=== PATIENT | male | born 1960 | race Caucasian/White ===

== ENCOUNTER → 2018-12-29 | Outpatient (CLI) | payer BC ==
[~2018-12-29] MED LIST: DILT240C71 OR; MONT10TA34 PO; TRIA75TA55 PO
[2018-12-29 08:22] LABS: Basophils # (auto) 0 uL; Eosinophils # (auto) 0.1 uL; Eosinophils % (auto) 1.1 % (0.0-7.0); Lymphocytes # (auto) 1.3 uL; Mean Corpuscular Volume 99.9 fL (80.0-100.0); Monocytes # (auto) 0.4 uL; Nucleated Red Blood Cells % 0.1 %
[2018-12-29 08:26] LABS: Basophils % (auto) 0.7 % (0.0-2.0); Hematocrit 48.4 % (41.0-53.0); Mean Corpuscular Hemoglobin 35.1 pg (28.0-32.0); Mean Corpuscular Hgb Conc. 35.1 g/dL (32.0-36.0); Monocytes % (auto) 6.1 % (0.0-12.0); Neutrophils # (auto) 4.5 uL; Neutrophils % (auto) 71.1 % (37.0-80.0); Platelet Count (auto) 197 10^3/uL (140-450); Red Blood Cells 4.84 10^6/uL (4.5-5.90); Red Cell Distribution Width 13.1 % (11.8-14.3); White Blood Cell 6.3 10^3/uL (4.4-10.8)
[2018-12-29 09:06] LABS: Potassium 4.6 mmol/L (3.5-5.1)
[2018-12-29 09:12] LABS: Urine Bacteria NONE SEEN /hpf (None Seen); Urine Blood TRACE /uL (Negative); Urine Mucus FEW (None Seen); Urine Specific Gravity 1.021 (1.001-1.035); Urine WBC <1 /hpf (0 - 3)
[2018-12-29 09:16] LABS: Albumin 3.8 g/dL (3.4-5.0); BUN/Creatinine Ratio 19.4; Bilirubin, Total 0.5 mg/dL (0.2-1.0); Calcium 8.7 mg/dL (8.5-10.1); Total Protein 7.4 g/dL (6.4-8.2)
[2018-12-29 11:22] LABS: Free T4 (Free Thyroxine) 0.67 ng/dL (0.89-1.76); Prostate Specific Antigen 1.04 ng/mL (0.0-4.0)
== END | disposition home or self-care (01) ==
LOC: LAB 07:42
PROVIDERS: ATTEND Internal Medicine
DX: C18.9 Malignant neoplasm of colon, unspecified (principal); I10 Essential (primary) hypertension
CPT/HCPCS: 36415; 80053; 80061; 81001; 82043; 82378; 83615; 84153; 84439; 84443; 85025; 85652

== ENCOUNTER → 2019-02-23 | Day surgery (SDC) | payer BC ==
[2019-02-19 08:48] LABS: Basophils # (auto) 0 uL; Hemoglobin 16.9 g/dL (13.5-17.5); Lymphocytes # (auto) 1.2 uL; Monocytes # (auto) 0.4 uL; Neutrophils # (auto) 4.8 uL; White Blood Cell 6.5 10^3/uL (4.4-10.8)
[2019-02-19 08:50] LABS: Basophils % (auto) 0.4 % (0.0-2.0); Eosinophils # (auto) 0.1 uL; Eosinophils % (auto) 0.9 % (0.0-7.0); Hematocrit 48.2 % (41.0-53.0); Lymphocytes % (auto) 18.5 % (10.0-50.0); Mean Corpuscular Hgb Conc. 35.1 g/dL (32.0-36.0); Mean Corpuscular Volume 99.8 fL (80.0-100.0); Neutrophils % (auto) 74.2 % (37.0-80.0); Nucleated Red Blood Cells % 0.2 %; Platelet Count (auto) 185 10^3/uL (140-450); Red Blood Cells 4.83 10^6/uL (4.5-5.90)
[2019-02-19 09:04] LABS: INR 0.99 (0.9-1.15); Partial Thromboplastin Time 26.5 sec (23.64-32.05)
[~2019-02-23] MED LIST changes: -DILT240C71 OR; +METO-169 PO; -MONT10TA34 PO; +SODIUM CHLORIDE LOCK 10 ML ONE; -TRIA75TA55 PO; +VALS1TAB57 PO; +diphenhdrAMINE HCL 50 MG/1 ML VL ONE
[2019-02-23] MEDS: MIDAZOLAM HCL 5 MG/ML-1ML VIAL ONE ×2 (11:17→11:20)
[2019-02-23] MEDS: fentaNYL CITRATE 100 MCG/2 ML VL ONE ×2 (11:17→11:20)
[2019-02-23 11:56] VITALS: BP 136/83
== END | disposition home or self-care (01) ==
LOC: GI 09:07
PROVIDERS: ATTEND Internal Medicine Gastroenterology
DX: Z12.11 Encounter for screening for malignant neoplasm of colon (principal); D12.3 Benign neoplasm of transverse colon; K57.30 Diverticulosis of large intestine without perforation or abscess without bleeding; K64.8 Other hemorrhoids; F17.210 Nicotine dependence, cigarettes, uncomplicated; Z88.8 Allergy status to other drugs, medicaments and biological substances; Z79.899 Other long term (current) drug therapy; Z86.718 Personal history of other venous thrombosis and embolism
CPT/HCPCS: 36415; 45380; 85025; 85610; 85730; 88305; J1200; J2250; J3010; J7030; 99152

== ENCOUNTER → 2020-02-26 | Outpatient (CLI) | payer BC ==
[~2020-02-26] MED LIST changes: -SODIUM CHLORIDE LOCK 10 ML ONE; -diphenhdrAMINE HCL 50 MG/1 ML VL ONE
[2020-02-26 09:49] LABS: Basophils # (auto) 0 10 ^3/uL (0-0.2); Basophils % (auto) 0.3 % (0.0-2.0); Eosinophils # (auto) 0 10 ^3/uL (0-0.8); Eosinophils % (auto) 0.5 % (0.0-7.0); Lymphocytes # (auto) 1.5 10 ^3/uL (0.4-5.4); Monocytes # (auto) 0.4 10 ^3/uL (0-1.3); Red Cell Distribution Width 13.2 % (11.8-14.3)
[2020-02-26 09:52] LABS: Hematocrit 47.1 % (41.0-53.0); Hemoglobin 16.4 g/dL (13.5-17.5); Lymphocytes % (auto) 19.8 % (10.0-50.0); Mean Corpuscular Hemoglobin 34.3 pg (28.0-32.0); Mean Corpuscular Hgb Conc. 34.8 g/dL (32.0-36.0); Mean Corpuscular Volume 98.5 fL (80.0-100.0); Monocytes % (auto) 5.5 % (0.0-12.0); Neutrophils # (auto) 5.7 10 ^3/uL (1.6-8.6); Neutrophils % (auto) 73.9 % (37.0-80.0); Nucleated Red Blood Cells % 0.1 %; Platelet Count (auto) 232 10^3/uL (140-450); Red Blood Cells 4.78 10^6/uL (4.5-5.90); White Blood Cell 7.8 10^3/uL (4.4-10.8)
[2020-02-26 09:57] LABS: Albumin 3.8 g/dL (3.4-5.0); Potassium 4.2 mmol/L (3.5-5.1)
[2020-02-26 10:04] LABS: BUN/Creatinine Ratio 13.5; Bilirubin, Total 0.6 mg/dL (0.2-1.0); Calcium 9.1 mg/dL (8.5-10.1); Total Protein 7.6 g/dL (6.4-8.2)
[2020-02-26 10:16] LABS: Free T4 (Free Thyroxine) 0.63 ng/dL (0.89-1.76); Prostate Specific Antigen 1.32 ng/mL (0.0-4.0)
== END | disposition home or self-care (01) ==
LOC: LAB 08:59
PROVIDERS: ATTEND Internal Medicine
DX: Z12.5 Encounter for screening for malignant neoplasm of prostate (principal); I10 Essential (primary) hypertension; Z85.72 Personal history of non-Hodgkin lymphomas; Z85.038 Personal history of other malignant neoplasm of large intestine
CPT/HCPCS: 36415; 80053; 80061; 82043; 84153; 84439; 84443; 85025; 85652

== ENCOUNTER → 2024-01-02 | Outpatient (CLI) | payer BC ==
[~2024-01-02] MED LIST changes: -METO-169 PO; +METO-289 PO
[2024-01-02 11:45] LABS: Urine Bacteria None Seen /hpf (None Seen)
[2024-01-02 11:55] LABS: Basophils # (auto) 0 10 ^3/uL (0-0.2); Basophils % (auto) 0.6 % (0.0-2.0); Eosinophils # (auto) 0 10 ^3/uL (0-0.8); Eosinophils % (auto) 0.4 % (0.0-7.0); Hematocrit 48.3 % (41.0-53.0); Hemoglobin 17.1 g/dL (13.5-17.5); Lymphocytes # (auto) 1.5 10 ^3/uL (0.4-5.4); Lymphocytes % (auto) 22.2 % (10.0-50.0); Mean Corpuscular Hemoglobin 35.1 pg (28.0-32.0); Mean Corpuscular Hgb Conc. 35.3 g/dL (32.0-36.0); Mean Corpuscular Volume 99.5 fL (80.0-100.0); Monocytes # (auto) 0.4 10 ^3/uL (0-1.3); Monocytes % (auto) 6.1 % (0.0-12.0); Neutrophils # (auto) 4.7 10 ^3/uL (1.6-8.6); Neutrophils % (auto) 70.7 % (37.0-80.0); Nucleated Red Blood Cells % 0.2 %; Platelet Count (auto) 200 10^3/uL (140-450); Red Blood Cells 4.85 10^6/uL (4.5-5.90); Red Cell Distribution Width 12.9 % (11.8-14.3); White Blood Cell 6.6 10^3/uL (4.4-10.8)
[2024-01-02 11:57] LABS: Urine Blood TRACE /uL (Negative); Urine Clarity Clear (Clear); Urine Color Light-Yellow (Yellow); Urine Protein, UAD Negative (Negative); Urine Urobilinogen Normal (Negative); Urine WBC <1 /hpf (0 - 3); Urine pH 5.5 (5.0-9.0)
[2024-01-02 12:17] LABS: Prostate Specific Antigen 1.36 ng/mL (0.0-4.0)
[2024-01-02 12:20] LABS: Free T4 (Free Thyroxine) 0.73 ng/dL (0.89-1.76)
[2024-01-02 12:21] LABS: Alanine Aminotransferase 57 U/L (7-40); Alkaline Phosphatase 99 U/L (46-116); Anion Gap 4 (5-15); Calcium 9.8 mg/dL (8.7-10.4); Carbon Dioxide 28 mmol/L (20-31); Carcinoembryonic Antigen 3.32 ng/mL (<=5.0); Chloride 102 mmol/L (98-107); Glucose 117 mg/dL (74-106); Sodium 134 mmol/L (136-145)
[2024-01-02 12:22] LABS: BUN/Creatinine Ratio 9.1 (10.0-20.0); Blood Urea Nitrogen 7 mg/dL (9-23); LDL Cholesterol 80 mg/dL (< 100); Triglycerides 100 mg/dL (< 150)
[2024-01-02 12:23] LABS: Albumin 4.6 g/dL (3.2-4.8); Aspartate Aminotransferase 31 U/L (13-40); Cholesterol 154 mg/dL (< 200); HDL Cholesterol 65 mg/dL (40-59)
[2024-01-02 12:24] LABS: Bilirubin, Total 0.7 mg/dL (0.2-1.0); Total Protein 7.6 g/dL (5.7-8.2)
[2024-01-02 12:27] LABS: Erythrocyte Sedimentation Rate 2 mm/hr (0-20)
== END | disposition home or self-care (01) ==
LOC: LAB 11:35
PROVIDERS: ATTEND Internal Medicine
DX: Z01.84 Encounter for antibody response examination (principal); C18.9 Malignant neoplasm of colon, unspecified; I10 Essential (primary) hypertension
CPT/HCPCS: 36415; 80053; 80061; 81001; 82378; 84153; 84439; 84443; 85025; 85652; 86787

== ENCOUNTER 2024-03-31 08:44 | Day surgery (SDC) | payer BC, OTHER ==
[2024-03-26 09:44] LABS: Urine Bacteria None Seen /hpf (None Seen)
[2024-03-26 10:43] LABS: Basophils # (auto) 0 10 ^3/uL (0-0.2); Basophils % (auto) 0.6 % (0.0-2.0); Lymphocytes # (auto) 1.7 10 ^3/uL (0.4-5.4); Mean Corpuscular Hemoglobin 34.6 pg (28.0-32.0); Monocytes # (auto) 0.4 10 ^3/uL (0-1.3); White Blood Cell 5.4 10^3/uL (4.4-10.8)
[2024-03-26 11:10] LABS: Albumin 4.6 g/dL (3.2-4.8); Alkaline Phosphatase 98 U/L (46-116); Anion Gap 6 (5-15); Aspartate Aminotransferase 34 U/L (13-40); BUN/Creatinine Ratio 9.2 (10.0-20.0); Bilirubin, Total 0.8 mg/dL (0.2-1.0); Glucose 106 mg/dL (74-106); Potassium 3.7 mmol/L (3.5-5.1); Total Protein 7.6 g/dL (5.7-8.2)
[2024-03-26 11:11] LABS: Alanine Aminotransferase 59 U/L (7-40); Blood Urea Nitrogen 7 mg/dL (9-23); Carbon Dioxide 32 mmol/L (20-31); Chloride 96 mmol/L (98-107); Eosinophils # (auto) 0 10 ^3/uL (0-0.8); Eosinophils % (auto) 0.9 % (0.0-7.0); Hematocrit 47.6 % (41.0-53.0); Hemoglobin 16.8 g/dL (13.5-17.5); Lymphocytes % (auto) 32.4 % (10.0-50.0); Mean Corpuscular Hgb Conc. 35.4 g/dL (32.0-36.0); Mean Corpuscular Volume 97.8 fL (80.0-100.0); Monocytes % (auto) 7.6 % (0.0-12.0); Neutrophils # (auto) 3.1 10 ^3/uL (1.6-8.6); Neutrophils % (auto) 58.5 % (37.0-80.0); Nucleated Red Blood Cells % 0.3 %; Platelet Count (auto) 209 10^3/uL (140-450); Red Blood Cells 4.87 10^6/uL (4.5-5.90); Red Cell Distribution Width 13.3 % (11.8-14.3); Sodium 134 mmol/L (136-145)
[2024-03-26 11:14] LABS: Urine Blood 1+ /uL (Negative); Urine Clarity Clear (Clear); Urine Color Yellow (Yellow); Urine Hyaline Cast FEW /lpf (0 - 2); Urine Mucus FEW (None Seen); Urine Protein, UAD TRACE (Negative); Urine Specific Gravity 1.017 (1.001-1.035); Urine Squamous Epithelial Cell None Seen /hpf (<5); Urine Urobilinogen Normal (Negative); Urine WBC <1 /hpf (0 - 3); Urine pH 5.5 (5.0-9.0)
[2024-03-26 11:38] LABS: INR 0.97 (0.9-1.15); Partial Thromboplastin Time 27.8 SEC (24.5-34.5); Prothrombin Time 10.3 sec (9.3-11.8)
[~2024-03-31] VITALS: Ht 182.9 cm; Wt 81.6 kg
[~2024-03-31 08:44] MED LIST changes: +CHLO25TA2 PO; +FLUT1AER3 IN
[2024-03-31] MEDS ORDERED: ONDANSETRON HCL 4 MG/2 ML VIAL ONE (11:01)
[2024-03-31 11:30] VITALS: BP 140/85; PULSE 82; RESP 16; O2SAT 99
--- NOTE | 2024-04-01 12:58 | DVHNC2 ---
Procedure - PROCEDURE DATE: March 31, 2024 SURGEON: Amos Cooney MD REFERRING PROVIDER: Wilfred Gonzalez MD PROCEDURE PERFORMED: 1. COLONOSCOPY WITH COLD SNARE POLYPECTOMY WITH ANESTHESIA 2. COLONOSCOPY WITH BIOPSY WITH ANESTHESIA PRE-PROCEDURE DIAGNOSIS: 1. SURVEILLANCE COLONOSCOPY, HISTORY OF COLON CANCER WITH PARTIAL COLECTOMY 2. HISTORY OF LYMPHOMA POSTPROCEDURE DIAGNOSIS: 1. FIVE COLON POLYPS THROUGHOUT THE COLON 2. ANASTOMOSIS IN THE SIGMOID COLON 3. RETAINED SUTURES IN NODULARITY AT ANASTOMOTIC SITE , BIOPSIES TAKEN 4. MILD LEFT-SIDED DIVERTICULOSIS 5. 2+ INTERNAL HEMORRHOIDS INDICATIONS FOR PROCEDURE: The patient is a 63-year-old male with a prior history of colon cancer, diagnosed in 2014. He is S/P partial colectomy and presents for surveillance colonoscopy. He has a history of lymphoma as well. ANESTHESIOLOGY: Per Dr. Singh DETAILS OF THE PROCEDURE: Informed consent was obtained after risks, benefits, and alternatives, were discussed at length with the patient. Consent was given for the procedures as well as for the anesthesia. The patient was placed in left lateral decubitus position. Digital rectal exam showed internal hemorrhoids. An Olympus variable torsion adult colonoscope was inserted into the rectum and advanced to the cecum. The cecum was identified by the ileocecal valve in the appendiceal orifice. The scope was then withdrawn. The prep was good with only small amounts of stool. Small or flat lesions could have been missed. The patient had two cecal polyps removed with cold snare. The patient had two transverse colon polyps removed with biopsy forceps. There was another descending colon polyp removed with cold snare. Near the anastomosis the patient had raised tissue and biopsies were taken to exclude recurrence of polyp or tumor. Patient also had retained sutures in this area. More than 6 minutes of withdrawal time was noted. Retroflexion showed 2+ internal hemorrhoids. More than 10 minutes of withdrawal time was noted. The patient tolerated the procedure well. IMPRESSION: 1. Five colon polyps throughout the colon removed with cold snare and biopsy forceps 2. Retained sutures at anastomotic site 3. Anastomosis sigmoid colon 4. Nodularity at anastomotic site which may be inflamed tissue do the surgery versus polyp versus other 5. 2+ internal hemorrhoids 6. Mild left-sided diverticulosis RECOMMENDATIONS: 1. Follow up in GI clinic for procedure and pathology results 2. High-fiber diet 3. Repeat colonoscopy in one year unless otherwise indicated by pathology, or symptoms 4. Polyp columnar care physician 5. Consider medical management of hemorrhoids versus surgical referral I would like to thank Dr. Gonzalez for this referral. AMOS COONEY MD Apr 01, 2024 12:58
== END 2024-03-31 11:33 | disposition home or self-care (01) ==
LOC: GI 08:44
PROVIDERS: ATTEND Specialist
DX: Z12.11 Encounter for screening for malignant neoplasm of colon (principal); D12.0 Benign neoplasm of cecum; D12.3 Benign neoplasm of transverse colon; D12.4 Benign neoplasm of descending colon; K57.30 Diverticulosis of large intestine without perforation or abscess without bleeding; K64.1 Second degree hemorrhoids; Z85.038 Personal history of other malignant neoplasm of large intestine; Z79.899 Other long term (current) drug therapy; Z98.890 Other specified postprocedural states; Z90.49 Acquired absence of other specified parts of digestive tract
CPT/HCPCS: 36415; 45380; 45385; 80053; 81001; 85025; 85610; 85730; 88305; 88342; J2405

== ENCOUNTER → 2024-05-15 | Outpatient (CLI) | payer BC ==
[2024-05-15 09:55] LABS: Potassium 3.3 mmol/L (3.5-5.1)
[2024-05-16 07:07] LABS: Hepatitis B Core Total Antibod Negative (Negative)
[2024-05-16 11:07] LABS: Anti-Nuclear Antibody Direct Negative (Negative)
== END | disposition home or self-care (01) ==
LOC: LAB 08:37
PROVIDERS: ATTEND Internal Medicine
DX: I10 Essential (primary) hypertension (principal); R79.89 Other specified abnormal findings of blood chemistry
CPT/HCPCS: 36415; 83540; 84132; 84450; 84460; 86038; 86705; 86706; 86709; 86803; 87340

== ENCOUNTER 2024-08-24 10:37 | Outpatient (CLI) | payer BC ==
[2024-08-24 11:25] LABS: Albumin 4.7 g/dL (3.2-4.8); Alkaline Phosphatase 77 U/L (46-116); Anion Gap 8 (5-15); Calcium 10.3 mg/dL (8.7-10.4); Glucose 96 mg/dL (74-106); Total Protein 7.6 g/dL (5.7-8.2)
[2024-08-24 11:26] LABS: Bilirubin, Total 0.3 mg/dL (0.2-1.0)
[2024-08-24 11:28] LABS: Alanine Aminotransferase 56 U/L (7-40); Aspartate Aminotransferase 37 U/L (<34); BUN/Creatinine Ratio 6.7 (10.0-20.0); Blood Urea Nitrogen < 5 mg/dL (9-23); Carbon Dioxide 32 mmol/L (20-31); Chloride 93 mmol/L (98-107); Potassium 3.2 mmol/L (3.5-5.1); Sodium 133 mmol/L (136-145)
[2024-08-24 13:21] LABS: Free T4 (Free Thyroxine) 0.92 ng/dL (0.89-1.76); Prolactin 8.25 ng/mL (2.1-17.7)
== END 2024-08-24 17:00 | disposition home or self-care (01) ==
LOC: LAB 10:37
PROVIDERS: ATTEND Internal Medicine
DX: I10 Essential (primary) hypertension (principal)
CPT/HCPCS: 36415; 80053; 84146; 84403; 84439; 84443